=== PATIENT | male | born 2000 ===

== ENCOUNTER 2024-01-26 19:26 | Emergency (ER) | payer BC, OTHER ==
[2024-01-26 20:19] LABS: BASOPHILS ABSOLUTE AUTO 0.05 K/uL (0.00-0.20); BASOPHILS PERCENT AUTO 0.4 % (0.0-2.0); EOSINOPHILS ABSOLUTE AUTO 0.24 K/uL (0.00-0.50); EOSINOPHILS PERCENT AUTO 1.9 % (0.0-5.0); HEMATOCRIT 46.2 % (39.0-49.0); IMMATURE GRAN ABSOLUTE AUTO 0.02 10^3/uL (0.00-0.50); IMMATURE GRAN PERCENT AUTO 0.2 % (0.0-5.0); LYMPHOCYTES ABSOLUTE AUTO 1.18 K/uL (0.50-3.50); LYMPHOCYTES PERCENT AUTO 9.1 % (10.0-50.0); MEAN CORPUSCULAR HEMOGLOBIN 30.1 pg (28.2-33.3); MEAN CORPUSCULAR HGB CONC 34.6 g/dL (31.7-36.0); MONOCYTES ABSOLUTE AUTO 0.72 K/uL (0.00-1.00); MONOCYTES PERCENT AUTO 5.6 % (2.0-14.0); NEUTROPHILS ABSOLUTE AUTO 10.74 K/uL (1.40-7.00); NEUTROPHILS PERCENT AUTO 82.8 % (45.0-80.0); PLATELET COUNT,PLT 165 K/uL (150-350); RED BLOOD CELL COUNT 5.31 M/uL (4.33-5.41); RED CELL DISTRIBUTION WIDTH 11.9 % (11.2-14.1)
[2024-01-26 20:51] LABS: ALANINE AMINOTRANSFERASE,ALT 29 U/L (12-78); ALBUMIN 4.3 g/dL (3.4-5.0); ALKALINE PHOSPHATASE 64 IU/L (46-116); ANION GAP 8.1 meq/L (7-15); ASPARTATE AMNIOTRANSFERASE,AST 22 U/L (15-37); BILIRUBIN TOTAL 0.3 mg/dL (0.2-1.0); BLOOD UREA NITROGEN,BUN 19 mg/dL (7-18); CALCIUM 8.9 mg/dL (8.5-10.1); CARBON DIOXIDE,CO2 28.9 mmol/L (21.0-32.0); CHLORIDE,CL 105 mmol/L (98-107); CREATININE 1.07 mg/dL (0.51-1.17); GLUCOSE RANDOM 92 mg/dL (70-99); POTASSIUM,K 3.5 mmol/L (3.5-5.1); PROTEIN TOTAL,TP 7.5 g/dL (6.4-8.2); SODIUM,NA 142 mmol/L (136-145); TSH ULTRASENSITIVE 1.893 mIU/mL (0.358-3.740)
[2024-01-26 21:00] LABS: ESTIMATED GFR 101 mL/min (>=60)
== END 2024-01-26 21:11 | disposition home or self-care (01) ==
LOC: LL.ED 19:26
DX: R55 Syncope and collapse (principal); F17.200 Nicotine dependence, unspecified, uncomplicated
CPT/HCPCS: 36415; 80053; 84443; 85025; 93005; 93010; 99284